=== PATIENT | female | born 1995 | race American Indian/Alaskan Native ===

== ENCOUNTER 2021-02-14 20:59 | Emergency (ER) | payer SELFPAY ==
[2021-02-14 23:27] LABS: BUN/Creatinine Ratio 11; Blood Urea Nitrogen 11 mg/dL (7-17); Calcium 8.4 mg/dL (8.4-10.2); Hemolysis Index 2
[2021-02-14 23:35] LABS: Eosinophils # (Auto) 0.1 K/mm3 (0.0-0.4); Eosinophils % (Auto) 1.4 % (0.0-4.3); Hematocrit 39.6 % (30.3-42.9); Hemoglobin 12.9 gm/dl (10.1-14.3); Lymphocytes # (Auto) 2.5 K/mm3 (1.2-5.4); Lymphocytes % (Auto) 45.7 % (13.4-35.0); Mean Corpuscular HGB Conc 33 % (30-34); Mean Corpuscular Volume 83 fl (79-97); Monocytes # (Auto) 0.4 K/mm3 (0.0-0.8); Monocytes % (Auto) 6.4 % (0.0-7.3); Platelet Count 277 K/mm3 (140-440); Red Blood Count 4.75 M/mm3 (3.65-5.03); Red Cell Distribution Width 14.2 % (13.2-15.2)
--- NOTE | 2021-02-15 00:43 | Emergency Department Report ---
<ARI HSU - Last Filed: 02/15/21 01:49> ED Psych HPI - General Chief Complaint: Psych Stated Complaint: CHEST PAIN/SUBSTANCE ABUSE Time Seen by Provider: 02/15/21 00:25 Source: patient Mode of arrival: Ambulatory - History of Present Illness Initial Comments: Chief complaint: "I am suicidal. I am depressed. I am drinking too much." HPI: This is a 25-year-old female with history of alcohol use disorder, major depressive disorder, anxiety disorder who presents with suicidal ideation. She plans to overdose on pills. 2 days ago she intentionally took 8 pills of Advil. She is currently asymptomatic. She denies fever, headache, chest pain, shortness of breath, abdominal pain, vomiting, hematochezia or hematemesis. Patient attempted to gain acceptance to [facility]. Due to the change in her insurance status, she is unable to be admitted. She lost health insurance through her job. She went out of her medication Lexapro 2 weeks ago. MD Complaint: suicidal ideation -: Gradual, week(s) (Several weeks) Associated Psychiatric Symptoms: depression, suicidal ideation History of same: Yes Quality: constant Improves With: none Worsens With: none Context: recent alcohol abuse, not taking psychiatric Associated Symptoms: denies other symptoms If Self Harm: has plan, has acted on plan - Related Data Allergies Allergy/AdvReac Type Severity Reaction Status Date / Time No Known Allergies Allergy Unverified 02/14/21 22:27 ED Review of Systems Comment: All other systems reviewed and negative Constitutional: denies: fever Respiratory: denies: cough Cardiovascular: denies: chest pain Gastrointestinal: denies: abdominal pain, nausea, vomiting Musculoskeletal: denies: back pain Skin: denies: rash ED Past Medical Hx - Past Medical History Previous Medical History?: Yes Hx Psychiatric Treatment: No (Major depressive disorder) - Surgical History Past Surgical History?: No - Social History Smoking Status: Never Smoker Substance Use Type: Alcohol ED Physical Exam - General Limitations: No Limitations General appearance: alert, in no apparent distress - Head Head exam: Present: atraumatic, normocephalic - Eye Eye exam: Present: normal appearance - ENT ENT exam: Present: mucous membranes moist - Neck Neck exam: Present: normal inspection, full ROM - Respiratory Respiratory exam: Present: normal lung sounds bilaterally. Absent: respiratory distress - Cardiovascular Cardiovascular Exam: Present: regular rate, normal rhythm. Absent: systolic murmur, diastolic murmur, rubs, gallop - GI/Abdominal GI/Abdominal exam: Present: soft, normal bowel sounds. Absent: distended, tenderness, guarding, rebound - Extremities Exam Extremities exam: Present: normal inspection - Neurological Exam Neurological exam: Present: alert, oriented X3 - Psychiatric Psychiatric exam: Present: normal affect, depressed, suicidal ideation - Skin Skin exam: Present: warm, dry, intact, normal color. Absent: rash ED Medical Decision Making - Lab Data Result diagrams: 02/14/21 22:44 02/14/21 22:44 Laboratory Results - last 24 hr 02/14/21 02/14/21 02/14/21 22:44 22:44 22:44 WBC RBC Hgb Hct MCV MCH MCHC RDW Plt Count Lymph % (Auto) Lipscomb % (Auto) Eos % (Auto) Baso % (Auto) Lymph # (Auto) Lipscomb # (Auto) Eos # (Auto) Baso # (Auto) Seg Neutrophils % Seg Neutrophils # Sodium 141 Potassium 4.0 Chloride 102.5 Carbon Dioxide 25 Anion Gap 18 BUN 11 Creatinine 1.0 Estimated GFR > 60 BUN/Creatinine Ratio 11 Glucose 92 Calcium 8.4 HCG, Qual Salicylates < 0.3 L Acetaminophen 5.0 L Plasma/Serum Alcohol 02/14/21 02/14/21 02/14/21 22:44 22:44 22:49 WBC 5.5 RBC 4.75 Hgb 12.9 Hct 39.6 MCV 83 MCH 27 L MCHC 33 RDW 14.2 Plt Count 277 Lymph % (Auto) 45.7 H Lipscomb % (Auto) 6.4 Eos % (Auto) 1.4 Baso % (Auto) Lean Facilitator Lymph # (Auto) 2.5 Lipscomb # (Auto) 0.4 Eos # (Auto) 0.1 Baso # (Auto) 0.0 Seg Neutrophils % 45.8 Seg Neutrophils # 2.5 Sodium Potassium Chloride Carbon Dioxide Anion Gap BUN Creatinine Estimated GFR BUN/Creatinine Ratio Glucose Calcium HCG, Qual Negative Salicylates Acetaminophen Plasma/Serum Alcohol 0.17 H - Medical Decision Making 1. Suicidal ideation with plan to overdose, depression disorder: 1013 form completed, ED hold order in place. Patient is medically clear for psychiatric care. 2. Alcohol intoxication: BAL 0.17. Patient is now sober. I evaluated patient 4 hours after the initial blood drwa. 3. Intentional overdose of Advil 2 days ago. She informed me that she took 8 pills. She does not have evidence of severe medical adverse effect. CBC chemistry salicylate acetaminophen levels all within normal limits. test negative. Urinalysis is contaminated: No indication for treatment. Patient does not have symptoms of UTI. ED Disposition Clinical Impression: Major depressive disorder, Suicide attempt, Alcohol use disorder, Alcohol intoxication Disposition: HOME / SELF CARE / HOMELESS Condition: Stable Instructions: Binge-Drinking Information, Adult, Living With Depression, Suicidal Feelings: How to Help Yourself Prescriptions: Escitalopram Oxalate [Lexapro] 20 mg PO DAILY #30 tablet Referrals: PRIMARY CARE, [Primary Care Provider] - 3-5 Days <SHAHBAZ HSU - Last Filed: 02/16/21 08:06> ED Review of Systems ROS: Stated complaint: CHEST PAIN/SUBSTANCE ABUSE Other details as noted in HPI ED Course Vital Signs 02/15/21 02/15/21 02/15/21 00:21 02:38 07:39 Temperature 98.0 F Pulse Rate 98 H 97 H 92 H Respiratory 18 18 20 Rate Blood Pressure 116/84 112/74 122/80 [Left] O2 Sat by Pulse 97 96 100 Oximetry 02/15/21 02/15/21 02/16/21 19:23 21:00 07:45 Temperature 98.2 F Pulse Rate 75 Respiratory 18 18 20 Rate Blood Pressure 123/60 [Left] O2 Sat by Pulse 96 98 98 Oximetry 02/16/21 07:47 Temperature 98.0 F Pulse Rate 84 Respiratory 20 Rate Blood Pressure 128/93 [Left] O2 Sat by Pulse 98 Oximetry - Reevaluation(s) Reevaluation #1: 02/16/21 08:04 Psychiatry Progress Note Patient Name: VEENA SIMPSON Date of : 89 Patient Status: Emergency Emergency Provider: ARI HSU Date: 02/16/21 07:55 Initialization Date: 02/16/21 07:55 Subjective - Reason for Consult Consult date: 02/16/21 Reason for consult: depression - Chief Complaint Chief complaint: The patient was seen today. She is smiling. She is pleasant, calm, and cooperative. She denies SI/HI. She says the other day she "was drinking and took a few pills." She says "but I'm not going to hurt myself. I ran out of my lexapro and this is how I ended up here." She denies homicidal thoughts as well. The patient denies hallucinations of any kind. REVIEW OF SYSTEMS Constitutional: Negative for weight loss ENT: Negative for stridor Respiratory: Negative for cough or hemoptysis All other systems reviewed and are negative MENTAL STATUS EXAMINATION General Appearance and Behavior: Age appropriate, good hygiene, wearing appropriate clothes. Cooperation: Cooperative Psychomotor Behavior: Psychomotor normal Mood:Depressed Affect and affective range: congruent with stated mood Thought Process: Goal Directed Thought Content: Not Suicidal Speech: Normal volume, Regular rate and rhythm, Suicidal Ideation: Denies Homicidal Ideation: Denies Hallucinations: Denies Delusions: None elicited Impulse Control: Unimpaired Insight and Judgment: Limited, poor judgment Memory: Normal Attention:Attentive Orientation: alert and oriented Assessment (1) Alcohol Use Disorder, severe (2) Major depressive disorder, recurrent, severe,F33.2 Current Visit: Yes Status: Acute Treatment Plan d/c 1013 Lexapro 20mg po daily The patient to comply with previously prescribed medications Risks, benefits and alternatives of medications discussed with the patient, questions answered and consent obtained from patient. PSYCHOTHERAPY: Supportive psychotherapy provided MEDICAL: Per primary team DELIRIUM PRECAUTIONS: Please re-orient patient frequently, keep lights on during the day, and minimize benzodiazepines and opiates as these medications could worsen patient's confusion. CHASSIS DRIVER: Defer to primary DISPOSITION: Do not recommend acute inpatient psychiatric hospitalization at this time. The patient understands that if suicidal/homicidal ideation or any endangering thoughts/behaviors arise, he should seek emergent assistance including but not limited to crisis hotline and emergency room. Follow up with outpatient psychiatrist with 7- 14 days of discharge. The underwriting manager to further discuss safety plan The patient to abstain from all illicit drug use FOLLOW-UP: Will sign off Case staffed with Dr. El Reevaluation #2: 02/16/21 08:04 After 2 days of monitoring the patient has reached sobriety. She is will be started on Lexapro. Is no longer having suicidal thoughts and states she feels well. Patient has been having issues with alcohol abuse and depression for quite some time. States she does want to try to turn her life around. Patient be given outpatient resources for alcohol abuse. Patient stable for discharge. ED Medical Decision Making - Lab Data Result diagrams: 02/14/21 22:44 02/14/21 22:44 Critical care attestation.: If time is entered above; I have spent that time in minutes in the direct care of this critically ill patient, excluding procedure time. ED Disposition Is pt being admited?: No Does the pt Need Aspirin: No Time of Disposition: 08:05
[2021-02-15] MEDS ORDERED: ALUM-MAG HYDROXIDE-SIMETHICONE 200-200-20MG/5ML ORAL LIQD 30 ML PO PRN (00:44)
[2021-02-15] MEDS ORDERED: MAGNESIUM HYDROXIDE (MOM) ORAL LIQD UDC PO PRN (00:44)
[2021-02-15] MEDS ORDERED: ACETAMINOPHEN 325 MG TAB PO PRN (00:44)
[2021-02-15 01:26] LABS: Bacteria,Urine 1+ /HPF (Negative); Bilirubin,Urine NEG (Negative); Blood,Urine SM (Negative); Color,Urine Yellow (Yellow); Mucus,Urine FEW /HPF; Protein,Urine <15 mg/dL mg/dL (Negative); Urobilinogen,Urine < 2.0 mg/dL (<2.0)
[2021-02-15 01:48] LABS: Amphetamine Screen,Urine PRESUMPTIVE NEGATIVE; Benzodiazepines Screen,Urine PRESUMPTIVE NEGATIVE; Cannabinoid Screen,Urine PRESUMPTIVE NEGATIVE; Cocaine Screen,Urine PRESUMPTIVE NEGATIVE; Methadone Screen,Urine PRESUMPTIVE NEGATIVE; Opiate Screen,Urine PRESUMPTIVE NEGATIVE
--- NOTE | 2021-02-15 09:47 | Consultation ---
History of Present Illness - Reason for Consult Consult date: 02/15/21 Reason for consult: suicidal attempt - History of Present Psychiatric Illness Per ED Note: This is a 25-year-old female with history of alcohol use disorder, major depressive disorder, anxiety disorder who presents with suicidal ideation. She plans to overdose on pills. 2 days ago she intentionally took 8 pills of Advil. She is currently asymptomatic. She denies fever, headache, chest pain, shortness of breath, abdominal pain, vomiting, hematochezia or hematemesis. Patient attempted to gain [place] [facility] [place] Due to the change in her insurance status, she is unable to be admitted. She lost health insurance through her job. She went out of her medication Lexapro 2 weeks ago. Janet Aparicio is a 25 year old female with a history of Alcohol use disorder, Depression, Anxiety, suicidal attempts and multiple inpatient detoxification who presents to the ED with suicidal ideation. In my interview with the patient, she reports an ongoing depression and heavy alcohol use. She reports that she has been using alcohol since age 14; states she consumes 1 liter of Whiskey at least three times in a week and drinks 4 -12 ounces of beer and a bottle of wine every day. She reports longest sobriety period as 60 days. She reports recent stressors such as " unable to maintain a job because I get so drunk." She reports that she moved from [place] about 4 months ago to stay closer to her family members. She reports multiple self detox and states " I feel so bad when I stop so , I take some more alcohol to feel better." She reports that her father was an alcoholic who from cirrhosis. The patient presents with mild tremors but denies any current alcohol cravings. The patient denies current suicidal/ homicidal ideation and denies hallucinations. PAST PSYCHIATRIC HISTORY: Diagnoses: Alcohol use disorder, Depression and Anxiety Suicide attempts or Self-harm behavior: Yes Prior psychiatric hospitalizations: Yes Substance Abuse history: alcohol (everyday use) Previous psychiatric medications tried: Current on Lexapro, Naltrexone Outpatient treatment:unknown PAST MEDICAL HISTORY: None reported or document Family Psychiatric History: None reported or documented SOCIAL HISTORY Marital Status: Single Living Arrangements: Lives alone Employment Status: unemployed Access to guns/weapons: Denies Education:some college History of Abuse:Unknown Legal History: Denies REVIEW OF SYSTEMS Constitutional: Negative for weight loss ENT: Negative for stridor Respiratory: Negative for cough or hemoptysis All other systems reviewed and are negative MENTAL STATUS EXAMINATION General Appearance and Behavior: Age appropriate, good hygiene, wearing a ppropriate clothes. Cooperation: Cooperative Psychomotor Behavior: Psychomotor normal Mood:Depressed Affect and affective range: congruent with stated mood Thought Process: Goal Directed Thought Content: Not Suicidal Speech: Normal volume, Regular rate and rhythm, Suicidal Ideation: Denies Homicidal Ideation: Denies Hallucinations: Denies Delusions: None elicited Impulse Control: Unimpaired Insight and Judgment: Limited, poor judgment Memory: Normal Attention:Attentive Orientation: alert and oriented Assessment and Plan (1) Alcohol Use Disorder, severe (2) Major depressive disorder, recurrent, severe,F33.2 Current Visit: Yes Status: Acute Continue 1013 Start Lexapro 20mg po daily Start CIWA protocol The patient to comply with previously prescribed medications Risks, benefits and alternatives of medications discussed with the patient, questions answered and consent obtained from patient. PSYCHOTHERAPY: Supportive psychotherapy provided MEDICAL: Per primary team DELIRIUM PRECAUTIONS: Please re-orient patient frequently, keep lights on during the day, and minimize benzodiazepines and opiates as these medications could worsen patient's confusion. SALES RECEPTIONIST: Defer to primary DISPOSITION: Recommend acute inpatient psychiatric hospitalization at this time. FOLLOW-UP: Will follow. Please contact with any questions and/or concerns. Medications and Allergies Medications and Allergies Allergies Allergy/AdvReac Type Severity Reaction Status Date / Time No Known Allergies Allergy Unverified 02/14/21 22:27 Active Meds: Active Medications Acetaminophen (Acetaminophen 325 Mg Tab) 650 mg PO Q4HR PRN PRN Reason: Pain MILD(1-3)/Fever >100.5/NAVA Al Hydrox/Mg Hydrox/Simethicone (Alum-Mag Hydroxide-Simethicone [phone]/5ml Oral Liqd 30 Ml) 30 ml PO Q4HR PRN PRN Reason: Indigestion Magnesium Hydroxide (Magnesium Hydroxide (Mom) Oral Liqd Udc) 30 ml PO Q12HR PRN PRN Reason: Constipation Mental Status Exam - Vital signs Last Vital Signs Temp 98.0 F 02/15/21 07:39 Pulse 92 H 02/15/21 07:39 Resp 20 02/15/21 07:39 BP 122/80 02/15/21 07:39 Pulse Ox 100 02/15/21 07:39 Results Result Diagrams: 02/14/21 22:44 02/14/21 22:44 Abnormal lab results 02/14/21 02/14/21 02/14/21 Range/Units 22:44 22:44 22:44 MCH (28-32) pg Lymph % (Auto) (13.4-35.0) % U Epithel Cells (Auto) (0-13.0) /HPF Salicylates < 0.3 L (2.8-20.0) mg/dL Acetaminophen 5.0 L (10.0-30.0) ug/mL Plasma/Serum Alcohol 0.17 H (0-0.07) % 02/14/21 02/15/21 Range/Units 22:44 00:33 MCH 27 L (28-32) pg Lymph % (Auto) 45.7 H (13.4-35.0) % U Epithel Cells (Auto) 19.0 H (0-13.0) /HPF Salicylates (2.8-20.0) mg/dL Acetaminophen (10.0-30.0) ug/mL Plasma/Serum Alcohol (0-0.07) % All other labs normal.
--- NOTE | 2021-02-15 10:32 | Event Note ---
Date: 02/15/21 S: "I just need to stop drinking." Patient denies any SI or HI. O: Vital signs stable. Patient is calm and cooperative. A: Major depression, alcohol use disorder P: 1013; awaiting inpatient psychiatric placement
[2021-02-15] MEDS ORDERED: ESCITALOPRAM 10 MG/10 ML ORAL LIQD PO SCH (11:00)
[2021-02-16 07:48] VITALS: BP 128/93
--- NOTE | 2021-02-16 07:57 | Progress Note ---
Subjective - Reason for Consult Consult date: 02/16/21 Reason for consult: depression - Chief Complaint Chief complaint: The patient was seen today. She is smiling. She is pleasant, calm, and cooperative. She denies SI/HI. She says the other day she "was drinking and took a few pills." She says "but I'm not going to hurt myself. I ran out of my lexapro and this is how I ended up here." She denies homicidal thoughts as well. The patient denies hallucinations of any kind. REVIEW OF SYSTEMS Constitutional: Negative for weight loss ENT: Negative for stridor Respiratory: Negative for cough or hemoptysis All other systems reviewed and are negative MENTAL STATUS EXAMINATION General Appearance and Behavior: Age appropriate, good hygiene, wearing appropriate clothes. Cooperation: Cooperative Psychomotor Behavior: Psychomotor normal Mood:Depressed Affect and affective range: congruent with stated mood Thought Process: Goal Directed Thought Content: Not Suicidal Speech: Normal volume, Regular rate and rhythm, Suicidal Ideation: Denies Homicidal Ideation: Denies Hallucinations: Denies Delusions: None elicited Impulse Control: Unimpaired Insight and Judgment: Limited, poor judgment Memory: Normal Attention:Attentive Orientation: alert and oriented Assessment (1) Alcohol Use Disorder, severe (2) Major depressive disorder, recurrent, severe,F33.2 Current Visit: Yes Status: Acute Treatment Plan d/c 1013 Lexapro 20mg po daily The patient to comply with previously prescribed medications Risks, benefits and alternatives of medications discussed with the patient, questions answered and consent obtained from patient. PSYCHOTHERAPY: Supportive psychotherapy provided MEDICAL: Per primary team DELIRIUM PRECAUTIONS: Please re-orient patient frequently, keep lights on during the day, and minimize benzodiazepines and opiates as these medications could worsen patient's confusion. GENERAL FREIGHT AGENT: Defer to primary DISPOSITION: Do not recommend acute inpatient psychiatric hospitalization at this time. The patient understands that if suicidal/homicidal ideation or any endangering thoughts/behaviors arise, he should seek emergent assistance including but not limited to crisis hotline and emergency room. Follow up with outpatient psychiatrist with 7- 14 days of discharge. The call center dispatcher to further discuss safety plan The patient to abstain from all illicit drug use FOLLOW-UP: Will sign off Case staffed with Dr. El Mental Status Exam - Vital signs Last Vital Signs Temp 98.0 F 02/16/21 07:47 Pulse 84 02/16/21 07:47 Resp 20 02/16/21 07:47 BP 128/93 02/16/21 07:47 Pulse Ox 98 02/16/21 07:47
== END 2021-02-16 09:00 | disposition home or self-care (01) ==
LOC: EEVIPCON 20:59 → ED 20:59
DX: F32.9 Major depressive disorder, single episode, unspecified (principal); R45.851 Suicidal ideations; F10.129 Alcohol abuse with intoxication, unspecified; Z20.822 Contact with and (suspected) exposure to COVID-19; Z72.89 Other problems related to lifestyle; Z98.890 Other specified postprocedural states; Z79.899 Other long term (current) drug therapy; Y90.9 Presence of alcohol in blood, level not specified
CPT/HCPCS: 36415; 80048; 80307; 81001; 84703; 85025; 99284; U0003; 80320; G0480